=== PATIENT | female | born 1980 | race African-American/Black ===

== ENCOUNTER 2021-05-16 09:13 | Emergency (ER) | payer MEDICAID ==
[~2021-05-16] VITALS: Ht 175.3 cm; Wt 112.5 kg
[2021-05-16 09:20] VITALS: BP 122/68
[2021-05-16] MEDS ORDERED: HYDR-4001 MT (09:41)
[2021-05-16] MEDS ORDERED: AMOX-494 MT (09:41)
[2021-05-16] MEDS ORDERED: CIPHCO LEFT EAR (09:41)
== END 2021-05-16 11:35 | disposition home or self-care (01) ==
LOC: ER 09:13
DX: H66.92 Otitis media, unspecified, left ear (principal); I10 Essential (primary) hypertension; Z88.6 Allergy status to analgesic agent
CPT/HCPCS: 99283

== ENCOUNTER 2021-06-05 09:30 | Emergency (ER) | payer MEDICAID ==
[~2021-06-05] VITALS: Ht 175.3 cm; Wt 121.0 kg
[~2021-06-05 09:30] MED LIST: AMOX-494 MT; CIPHCO LEFT EAR; HYDR-4001 MT
[2021-06-05] MEDS ORDERED: ONDANSETRON HCL 4MG/2ML INJ IV STA (10:36)
[2021-06-05] MEDS ORDERED: MORPHINE SULFATE 4 MG/ML CPJ (NOT FOR IM USE) IV ONE (10:45)
[2021-06-05 10:50] LABS: CLARITY URINE CLOUDY (CLEAR); COLOR URINE YELLOW (YELLOW); KETONES URINE NEGATIVE (NEGATIVE); LEUKOCYTE ESTERASE URINE 1+ (NEGATIVE); NITRITE URINE POSITIVE (NEGATIVE); OCCULT BLOOD URINE NEGATIVE (NEGATIVE); PROTEIN URINE NEGATIVE (NEGATIVE); SPECIFIC GRAVITY URINE 1.017 (1.005-1.030)
[2021-06-05] MEDS ORDERED: NITR100C PO (12:07)
[2021-06-05] MEDS ORDERED: TOPUD PO (12:09)
[2021-06-05] MEDS ORDERED: MORPHINE SULFATE 4 MG/ML CPJ (NOT FOR IM USE) IV SCH (12:15)
[2021-06-05] MEDS ORDERED: MORPHINE SULFATE 2 MG/ML CPJ (NOT FOR IM USE) IV SCH (12:15)
[2021-06-05 12:39] LABS: BASOPHILS % 0.7 % (0.0-2.0); EOSINOPHILS % 6.9 % (0.0-5.0); HEMATOCRIT. 40.6 % (36.0-48.0); HEMOGLOBIN. 13.3 g/dL (12.0-16.0); LYMPHOCYTES % 41.4 % (20.0-50.0); MEAN CORPUSCULAR VOLUME 88.5 fL (81.0-99.0); MEAN PLATELET VOLUME 8.1 fl (7.4-10.4); MONOCYTES % 8.7 % (2.0-8.0); NEUTROPHILS % 42.3 % (40.0-76.0); PLATELET 303 x1000/uL (130-400); RED BLOOD CELL COUNT 4.58 mill/uL (4.2-5.4); RED CELL DISTRIBUTION WIDTH 13.9 % (11.6-14.6)
[2021-06-05 12:44] LABS: CHLORIDE 110 mEq/L (98-107)
[2021-06-05 12:57] LABS: HCG SCREEN NEGATIVE
[2021-06-05 13:03] LABS: PROTHROMBIN TIME 10.3 sec (9.6-11.0)
[2021-06-05 14:41] VITALS: BP 126/84
== END 2021-06-05 14:48 | disposition home or self-care (01) ==
LOC: ER 09:30
DX: N39.0 Urinary tract infection, site not specified (principal); I10 Essential (primary) hypertension; F32.A Depression, unspecified; F41.9 Anxiety disorder, unspecified; Z79.82 Long term (current) use of aspirin
CPT/HCPCS: 36415; 80053; 81003; 83690; 84703; 85025; 85610; 96374; 96375; 99285; J2270; J2405

== ENCOUNTER 2021-10-23 20:18 | Emergency (ER) | payer MEDICAID ==
[~2021-10-23] VITALS: Ht 175.3 cm; Wt 116.0 kg
[~2021-10-23 20:18] MED LIST changes: +NITR100C PO; +TOPUD PO
[2021-10-23] MEDS ORDERED: HYDROCODONE/ACETAMINOPHEN 5/325MG TABLET PO ONE (22:45)
[2021-10-23] MEDS ORDERED: AMOXICILLIN/POTASSIUM CLAVULANATE 875/125MG TAB PO ONE (22:45)
[2021-10-23] MEDS ORDERED: TETANUS, DIPHTHERIA, PERTUSSIS VAC/PF 0.5ML (>10YR OLD) IM ONE (22:45)
[2021-10-23] MEDS ORDERED: BACITRACIN 15GM TUBE TOP ONE (22:45)
[2021-10-24] MEDS ORDERED: T3 PO (01:22)
[2021-10-24] MEDS ORDERED: AMOX-424 MT (01:22)
[2021-10-24 02:36] VITALS: BP 154/81
== END 2021-10-24 02:36 | disposition home or self-care (01) ==
LOC: ER 20:18
DX: S81.051A Open bite, right knee, initial encounter (principal); W54.0XXA Bitten by dog, initial encounter; Y93.89 Activity, other specified; Y92.89 Other specified places as the place of occurrence of the external cause; Y99.8 Other external cause status; M25.561 Pain in right knee; I10 Essential (primary) hypertension; Z79.899 Other long term (current) drug therapy
CPT/HCPCS: 73562; 90471; 90715; 99284

== ENCOUNTER 2021-10-25 14:25 | Emergency (ER) | payer MEDICAID ==
[~2021-10-25] VITALS: Ht 175.3 cm; Wt 113.0 kg
[~2021-10-25 14:25] MED LIST changes: +AMOX-424 MT; +T3 PO
[2021-10-25 14:39] VITALS: BP 169/85
== END 2021-10-25 15:42 | disposition home or self-care (01) ==
LOC: ER 14:25
DX: S81.051A Open bite, right knee, initial encounter (principal); S80.01XA Contusion of right knee, initial encounter; W54.0XXA Bitten by dog, initial encounter; Y93.89 Activity, other specified; Y92.9 Unspecified place or not applicable
CPT/HCPCS: 99281